=== PATIENT | male | born 1960 | race African-American/Black ===

== ENCOUNTER 2021-07-08 09:35 | Emergency (ER) | payer MEDICAID ==
[~2021-07-08] VITALS: Ht 180.3 cm; Wt 91.0 kg
[2021-07-08] MEDS ORDERED: LORAZEPAM 1MG TABLET PO ONE (09:45)
[2021-07-08 10:29] LABS: BASOPHILS % 0.2 % (0.0-2.0); EOSINOPHILS % 1.1 % (0.0-5.0); HEMOGLOBIN. 11.3 g/dL (14.0-18.0); LYMPHOCYTES % 14.3 % (20.0-50.0); MEAN CORPUSCULAR HEMOGLOBIN 28.4 pg (28.0-32.0); MEAN CORPUSCULAR VOLUME 85.5 fL (80.0-94.0); MEAN PLATELET VOLUME 8.2 fl (7.4-10.4); MONOCYTES % 7.4 % (2.0-8.0); PLATELET 284 x1000/uL (130-400); RED BLOOD CELL COUNT 3.98 mill/uL (4.7-6.1); RED CELL DISTRIBUTION WIDTH 13.3 % (11.6-14.6)
[2021-07-08 10:37] LABS: CHLORIDE 107 mEq/L (98-107)
[2021-07-08 10:42] LABS: ETHANOL BLOOD < 10 mg/dL
[2021-07-08 17:45] LABS: CLARITY URINE CLEAR (CLEAR); COLOR URINE YELLOW (YELLOW); KETONES URINE NEGATIVE (NEGATIVE); LEUKOCYTE ESTERASE URINE TRACE (NEGATIVE); NITRITE URINE NEGATIVE (NEGATIVE); OCCULT BLOOD URINE NEGATIVE (NEGATIVE); PH URINE 6.5 (4.5-8.0); PROTEIN URINE 1+ (NEGATIVE); SPECIFIC GRAVITY URINE 1.016 (1.005-1.030)
[2021-07-08 17:59] LABS: *AMPHETAMINES SCREEN URINE PRESUMTIVE POSITIVE (NEGATIVE)
[2021-07-08 18:00] LABS: *BARBITURATES SCREEN URINE NEGATIVE (NEGATIVE); *BENZODIAZEPINES SCREEN URINE NEGATIVE (NEGATIVE); *COCAINE SCREEN URINE PRESUMTIVE POSITIVE (NEGATIVE); CANNABINOID URINE SCREEN PRESUMTIVE POSITIVE (NEGATIVE); METHADONE URINE SCREEN NEGATIVE (NEGATIVE); OPIATES URINE SCREEN NEGATIVE (NEGATIVE); PHENCYCLIDINE URINE SCREEN NEGATIVE (NEGATIVE)
[2021-07-09] MEDS ORDERED: RISPERIDONE 1MG TABLET PO SCH (09:00)
[2021-07-09] MEDS: FLUOXETINE HCL 10 MG CAPSULE PO SCH (09:54)
[2021-07-09] MEDS ORDERED: QUETIAPINE FUMARATE 50MG TABLET PO SCH (21:00)
[2021-07-10] MEDS: FLUOXETINE HCL 10 MG CAPSULE PO SCH (09:35)
[2021-07-10 16:26] VITALS: BP 126/76
== END 2021-07-10 21:00 | disposition home or self-care (01) ==
LOC: ER 09:35
DX: F14.10 Cocaine abuse, uncomplicated (principal); F23 Brief psychotic disorder; F17.200 Nicotine dependence, unspecified, uncomplicated; I10 Essential (primary) hypertension; E11.9 Type 2 diabetes mellitus without complications; Z59.00 Homelessness unspecified; Z20.822 Contact with and (suspected) exposure to COVID-19
CPT/HCPCS: 36415; 80053; 80305; 80307; 80320; 80329; 81003; 85025; 99285; C9803; U0003; U0005; G0480